=== PATIENT | male | born 1980 | race Caucasian/White ===

== ENCOUNTER 2018-08-02 20:23 | Emergency (ER) | payer SELFPAY ==
[~2018-08-02] VITALS: Ht 177.8 cm; Wt 71.2 kg
[~2018-08-02 20:23] MED LIST: QUET100T PO
[2018-08-02 20:29] VITALS: BP 114/75
[2018-08-02] MEDS ORDERED: LIDOCAINE-MPF 1%, 5ML ONE (20:45)
[2018-08-02] MEDS ORDERED: BACITRACIN ZINC OINT 500U/GM, 0.9 GM ONE (21:06)
[2018-08-02] MEDS ORDERED: LIDOCAINE 1%, 10ML INFIL ONE (21:30)
[2018-08-02] MEDS ORDERED: BACITRACIN OINT 500U/GM, 15 GM TP SCH (21:30)
== END 2018-08-02 21:29 | disposition home or self-care (01) ==
LOC: ED 20:44
DX: S61.213A Laceration without foreign body of left middle finger without damage to nail, initial encounter (principal); W45.8XXA Other foreign body or object entering through skin, initial encounter; Y93.89 Activity, other specified; Y92.009 Unspecified place in unspecified non-institutional (private) residence as the place of occurrence of the external cause; Y99.8 Other external cause status
CPT/HCPCS: 12001; 99284

== ENCOUNTER 2020-01-15 01:30 | Emergency (ER) | payer SELFPAY ==
[~2020-01-15] VITALS: Ht 175.3 cm; Wt 73.6 kg
--- NOTE | 2020-01-15 01:52 | NUR ---
C/O COLD LIKE SYMPTOMS AND SUBJECTIVE FEVER ON AND OFF X3 WEEKS, PRODUCTIVE COUGH X1 WEEK.
--- NOTE | 2020-01-15 02:09 | NUR ---
BREAK RN: RAD IN ROOM.
--- NOTE | 2020-01-15 02:27 | NUR ---
BREAK RN: PT SLEEPING ON GURNEY, CHEST RISE AND FALL OBSERVED. NADN. AWAITING RESULTS.
[2020-01-15 02:32] LABS: BASOPHILS # (AUTO) 0.07 x10^3/uL (0-0.1); BASOPHILS % (AUTO) 1 % (0-1); EOSINOPHILS # (AUTO) 0.22 x10^3/uL (0-0.4); EOSINOPHILS % (AUTO) 2 % (1-7); LYMPHOCYTES # (AUTO) 1.92 x10^3/uL (1-3.4); LYMPHOCYTES % (AUTO) 20 % (22-44); MD NO; MEAN CORPUSCULAR HEMOGLOBIN 32.1 pg (27.5-34.5); MEAN CORPUSCULAR HGB CONC 33.3 g/dL (33.2-36.2); MEAN CORPUSCULAR VOLUME 96.3 fL (81-97); MEAN PLATELET VOLUME 7.2 fL (7.4-10.4); MONOCYTES # (AUTO) 0.55 x10^3/uL (0.2-0.8); MONOCYTES % (AUTO) 6 % (2-9); NEUTROPHILS # (AUTO) 6.69 x10^3/uL (1.8-6.8); NEUTROPHILS % (AUTO) 71 % (42-75); PLATELET COUNT 293 x10^3/uL (130-400); RED BLOOD COUNT 4.67 x10^6/uL (4.38-5.82); RED CELL DISTRIBUTION WIDTH 13.3 % (9.4-14.8)
[2020-01-15 02:37] VITALS: BP 105/64
[2020-01-15 02:42] LABS: ALBUMIN 3.4 g/dL (3.4-5.0); ANION GAP 7 mmol/L (5-15); CHLORIDE 110 mmol/L (98-107); CREATININE 1.04 mg/dL (0.7-1.3)
[2020-01-15 02:46] LABS: TROPONIN I < 0.015 ng/mL (0.000-0.045)
== END 2020-01-15 03:48 | disposition home or self-care (01) ==
LOC: ED 01:59
DX: R05 Cough (principal); J45.909 Unspecified asthma, uncomplicated; F17.200 Nicotine dependence, unspecified, uncomplicated; R00.0 Tachycardia, unspecified
CPT/HCPCS: 36415; 71045; 80048; 82040; 84484; 85025; 93005; 99285

== ENCOUNTER 2020-02-28 00:17 | Emergency (ER) | payer MEDICAID ==
[~2020-02-28] VITALS: Ht 177.8 cm; Wt 69.3 kg
[2020-02-28 00:20] VITALS: BP 135/80
[2020-02-28] MEDS ORDERED: LIDOCAINE-MPF 1%, 5ML INFIL ONE (01:00)
[2020-02-28] MEDS ORDERED: LIDOCAINE-MPF 1%, 5ML ONE (01:14)
[2020-02-28] MEDS ORDERED: NEOSPORIN OINT. PKT 1 PACKET ONE (02:34)
== END 2020-02-28 02:39 | disposition home or self-care (01) ==
LOC: ED 01:33
DX: S61.214A Laceration without foreign body of right ring finger without damage to nail, initial encounter (principal); G89.11 Acute pain due to trauma; F17.210 Nicotine dependence, cigarettes, uncomplicated; Y93.89 Activity, other specified; W23.1XXA Caught, crushed, jammed, or pinched between stationary objects, initial encounter; Y92.098 Other place in other non-institutional residence as the place of occurrence of the external cause; Y99.8 Other external cause status
CPT/HCPCS: 12031; 12041; 99284

== ENCOUNTER 2020-06-20 19:06 | Emergency (ER) | payer MEDICAID ==
[~2020-06-20] VITALS: Ht 175.3 cm; Wt 68.9 kg
[2020-06-20 19:13] VITALS: BP 119/73
--- NOTE | 2020-06-20 19:46 | NUR ---
SPREADER: PT. TO ROOM FROM LOBBY AT THIS TIME.
[2020-06-20] MEDS ORDERED: LIDOCAINE 1%-EPI 1:100K, 20ML SQ ONE (20:00)
[2020-06-20] MEDS ORDERED: DIPH,PERTUSS(ACELL),TET VAC/PF 0.5 ML IM-VACC ONE ×2 (20:00→20:35)
[2020-06-20] MEDS ORDERED: NEOSPORIN OINT. PKT 1 PACKET ONE (20:44)
== END 2020-06-20 21:21 ==
LOC: ED 20:39
DX: L03.114 Cellulitis of left upper limb (principal); L02.414 Cutaneous abscess of left upper limb; F17.210 Nicotine dependence, cigarettes, uncomplicated; Z72.9 Problem related to lifestyle, unspecified
CPT/HCPCS: 10060; 90471; 90715; 99284; 99406

== ENCOUNTER 2020-12-18 00:36 | Emergency (ER) | payer MEDICAID ==
[~2020-12-18] VITALS: Ht 177.8 cm; Wt 70.9 kg
[2020-12-18 00:38] VITALS: BP 148/65
--- NOTE | 2020-12-18 01:07 | NUR ---
DR. JEONG WAS IN TO EVAL PT. AND DISCUSS POC.
== END 2020-12-18 01:56 | disposition home or self-care (01) ==
LOC: ED 01:37
DX: L73.9 Follicular disorder, unspecified (principal); M79.602 Pain in left arm; M79.601 Pain in right arm; R10.9 Unspecified abdominal pain; J45.909 Unspecified asthma, uncomplicated; Z88.8 Allergy status to other drugs, medicaments and biological substances; F17.210 Nicotine dependence, cigarettes, uncomplicated
CPT/HCPCS: 99283; 99406

== ENCOUNTER 2021-03-27 01:17 | Emergency (ER) | payer MEDICAID ==
[~2021-03-27] VITALS: Ht 177.8 cm; Wt 70.2 kg
--- NOTE | 2021-03-27 02:08 | NUR ---
pt has swollen penis and testicles, pts pubic region has a rash, pt states that this started a few hours ago after intercourse with girlfriend, pt states he has a history of swelling in his genitals but never like this, pt states there is drainage comnig from his penis, pt has pain in his his scrotum, pts scrotum is swollen and red as well, pts girlfriend at bedside
[2021-03-27] MEDS ORDERED: HYDROcodone/APAP 5/325 TABLET ONE ×2 (02:16→03:04)
[2021-03-27] MEDS ORDERED: DIPHENHYDRAMINE 25 MG CAPSULE ONE (02:16)
[2021-03-27] MEDS: HYDROcodone/APAP 5/325 TABLET PO PRN ×2 (02:18→03:06)
--- NOTE | 2021-03-27 02:20 | NUR ---
Break RN: medicated patient per mar. Patient up to BR for urine sample. Collected urine and sent to lab.
[2021-03-27] MEDS ORDERED: DIPHENHYDRAMINE 25 MG CAPSULE PO ONE (02:30)
[2021-03-27 02:39] LABS: MICROSCOPIC INDICATED
[2021-03-27 02:42] LABS: BASOPHILS % (AUTO) 0 % (0-1); EOSINOPHILS % (AUTO) 5 % (1-7); LYMPHOCYTES % (AUTO) 13 % (22-44); MEAN CORPUSCULAR HEMOGLOBIN 32.4 pg (27.5-34.5); MEAN CORPUSCULAR HGB CONC 33.6 g/dL (33.2-36.2); MONOCYTES % (AUTO) 5 % (2-9); NEUTROPHILS % (AUTO) 76 % (42-75); PLATELET COUNT 309 x10^3/uL (130-400); RED BLOOD COUNT 5.19 x10^6/uL (4.38-5.82); RED CELL DISTRIBUTION WIDTH 13.3 % (9.4-14.8)
[2021-03-27 02:47] LABS: ALBUMIN 3.6 g/dL (3.4-5.0); ANION GAP 4 mmol/L (5-15); CHLORIDE 109 mmol/L (98-107); CREATININE 1.11 mg/dL (0.7-1.3)
[2021-03-27] MEDS ORDERED: AZITHROMYCIN 500 MG TABLET ONE (03:08)
[2021-03-27] MEDS ORDERED: CEFTRIAXONE 1,000 MG ONE (03:08)
[2021-03-27] MEDS ORDERED: LIDOCAINE-MPF 1%, 2ML ONE (03:09)
[2021-03-27] MEDS ORDERED: CEFTRIAXONE 1,000 MG IM ONE (03:30)
[2021-03-27] MEDS ORDERED: AZITHROMYCIN 500 MG TABLET PO ONE (03:30)
--- NOTE | 2021-03-27 03:36 | NUR ---
pt laying in bed, a/ox4, all needs in reach, call light in reach, NAD, pt has no complaints at this time, pt states pain has gone down a little, girlfriend at bedside
--- NOTE | 2021-03-27 04:37 | NUR ---
pt laying in bed, a/ox4, all needs in reach, call light in reach, pt states pain is down from 06/21 to 01/19, pt has no complaints at this time, NAD, girlfriend at bedside
[2021-03-27] MEDS ORDERED: BICILLIN-LA 2,400,000 UNITS/4 ML IM ONE (05:00)
[2021-03-27 05:19] VITALS: BP 104/64
== END 2021-03-27 05:28 | disposition home or self-care (01) ==
LOC: ED 02:09
DX: A74.9 Chlamydial infection, unspecified (principal); A54.9 Gonococcal infection, unspecified; N48.1 Balanitis; J45.909 Unspecified asthma, uncomplicated; G89.29 Other chronic pain; F17.210 Nicotine dependence, cigarettes, uncomplicated
CPT/HCPCS: 36415; 76870; 80048; 81001; 82040; 85025; 86592; 87086; 87491; 87591; 87806; 96372; 99284; 99406; J0561; J0696; Q0163; G0475